=== PATIENT | male | born 2000 | race Hispanic/Latino ===

== ENCOUNTER 2023-09-11 10:14 | Emergency (ER) | payer OTHER, SELFPAY ==
--- NOTE | ~2023-09-11 | XR_ITS ---
XR soft tissue neck 09/11/2023 13:03 Indication: Swelling around the Rodriguez apple Procedure: 2 views of the neck soft tissues Comparison: No prior studies for comparison. Findings: No prevertebral soft tissue abnormality. No abnormality of the adenoids or lingual tonsils. Epiglottis and area epiglottic folds are within normal limits. No subglottic narrowing. No significa nt deviation of the airway. Lung apices are unremarkable. Impression: 1: No significant soft tissue abnormality. If there is concern for neck soft tissue abnormality, daniela elation with CT with contrast recommended. Reviewed, dictated and finalized at location L. Impression: 1: No significant soft tissue abnormality. If there is concern for neck soft ti ssue abnormality, correlation with CT with contrast recommended.
[2023-09-11 10:33] VITALS: BP 106/64; PULSE 86; RESP 18; TEMP 36.3; O2SAT 98
--- NOTE | 2023-09-11 12:22 | ED.GENADULT ---
HPI - General Adult General Chief complaint: Unspecified Stated complaint: chokes when eating Time Seen by Provider: 09/11/23 11:58 History of Present Illness HPI narrative: Patient is a 23-year-old male with a history of autism, intellectual delay presenting after choking. History is provided by family who is at bedside. States that he has had a decreased appetite lately and today it looks like there is a bump on the anterior aspect of his throat while he was trying to eat. States that he has a long history of choking but it seemed worse when the bump appeared. He saw his doctor recently as he has not been maintaining his weight. They have started him on boost shakes for extra calories. No fevers, shortness of breath, vomiting. They state that he is keeping things down. No infectious symptoms. State he does not seem to be in pain. Review of Systems Review of Systems: All systems reviewed & are unremarkable except as noted in HPI and below Exam Narrative: GENERAL: Nontoxic, no acute distress, nonverbal HEAD: Normocephalic, atraumatic. EYES: PERRLA and EOMI. ENT: Mucous membranes moist. Patient minimally cooperative but I cannot appreciate any posterior pharyngeal swelling or other intraoral swelling, he is handling his secretions well; no external swelling of neck NECK: Supple. CHEST: Clear to auscultation. No respiratory distress. HEART: Regular rate and rhythm ABDOMEN: Soft, nontender, nondistended EXTREMITIES: Normal range of motion. SKIN: Warm NEURO: Nonverbal, at baseline PSYCH: Nonverbal Course Vital Signs Vital signs: Vital Signs Temperature 97.4 F L 09/11/23 10:33 Pulse Rate 86 09/11/23 10:33 Respiratory Rate 18 09/11/23 10:33 Blood Pressure 106/64 09/11/23 10:33 Pulse Oximetry 98 09/11/23 10:33 Oxygen Delivery Room Air 09/11/23 10:33 Temperature 97.4 F L 09/11/23 10:33 Pulse Rate 86 09/11/23 10:33 Respiratory Rate 18 09/11/23 10:33 Blood Pressure 106/64 09/11/23 10:33 Pulse Oximetry 98 09/11/23 10:33 Oxygen Delivery Room Air 09/11/23 10:33 Medical Decision Making [facility] Narrative Medical decision making narrative: Patient is a 23-year-old male presenting with choking episode. Vitals are stable. Exam remarkable for the above. He is nonverbal at baseline and only somewhat cooperative but he was able to open his mouth and I do not appreciate any intraoral swelling. He is drinking a boost shake with ease, no choking appreciated while I was in the room. His lungs are clear, he is in no distress. I offered to do a full work-up with blood work, CT soft tissue neck, fluids but the family declined this as his mom needs to go to work at 2. We will obtain a soft tissue neck x-ray. X-ray soft tissue neck shows no acute abnormalities. Patient is at baseline, he is tolerating p.o. intake. Family is asking to go which I think is reasonable. Advised PCP follow-up. Appropriate return precautions given. Discharged in stable condition. Differential Diagnosis Differential Diagnosis: Tonsillitis, choking, decreased appetite Medical Records Medical records reviewed: Yes I reviewed the external patient's medical records. Vital Signs Vital Signs: Vital Signs Temperature 97.4 F L 09/11/23 10:33 Pulse Rate 86 09/11/23 10:33 Respiratory Rate 18 09/11/23 10:33 Blood Pressure 106/64 09/11/23 10:33 Pulse Oximetry 98 09/11/23 10:33 Oxygen Delivery Room Air 09/11/23 10:33 Temperature 97.4 F L 09/11/23 10:33 Pulse Rate 86 09/11/23 10:33 Respiratory Rate 18 09/11/23 10:33 Blood Pressure 106/64 09/11/23 10:33 Pulse Oximetry 98 09/11/23 10:33 Oxygen Delivery Room Air 09/11/23 10:33 Imaging Data Radiologist's impression: ITS Impressions Soft Tissue Neck X-Ray 09/11/23 13:29 Impression: 1: No significant soft tissue abnormality. If there is concern for neck soft tissue abnormality, correlation with CT with contrast recommended
== END 2023-09-11 13:42 | disposition home or self-care (01) ==
PROVIDERS: Emergency Provider Emergency Medicine
DX: T17.928A Food in respiratory tract, part unspecified causing other injury, initial encounter (principal); F84.0 Autistic disorder; W44.F3XA Food entering into or through a natural orifice, initial encounter
CPT/HCPCS: 70360; 99283